=== PATIENT | male | born 1985 | race Caucasian/White ===

== ENCOUNTER 2020-08-04 11:31 | Emergency (ER) | payer BC, OTHER ==
[2020-08-04] MEDS ORDERED: Sodium Chloride 0.9% 1,000 ML IV ONE (12:00)
--- NOTE | 2020-08-04 12:07 | EDM.PDOC ---
ED HPI GENERAL MEDICAL PROBLEM - General Chief Complaint: Respiratory Problem Stated Complaint: LIGHT HEADED NAUSEA Time Seen by Provider: 08/04/20 11:35 Source of Information: Reports: Patient History Limitations: Reports: No Limitations - History of Present Illness INITIAL COMMENTS - FREE TEXT/NARRATIVE: Patient is a 35-year-old male who presents today for symptoms of weakness and fatigue. Patient states that his had the flu a few weeks ago and he also had a sinus infection but did day in the past few days he has been tired with body aches and fevers and chills. Patient denies any shortness of breath cough or abdominal pain. Heartburn Pain Score (Numeric/FACES): 3 - Related Data Allergies Allergy/AdvReac Type Severity Reaction Status Date / Time No Known Allergies Allergy Verified 08/04/20 11:40 Home Meds: Home Meds . [No Known Home Meds] 08/04/20 [History] Past Medical History - Past Health History Medical/Surgical History: Denies Medical/Surgical History - Infectious Disease History Infectious Disease History: Reports: None Social & Family History - Tobacco Use Tobacco Use Status *Q: Never Tobacco User - Caffeine Use Caffeine Use: Reports: Energy Drinks - Recreational Drug Use Recreational Drug Use: No ED ROS GENERAL - Review of Systems Review Of Systems: See Below Constitutional: Reports: No Symptoms, Fever, Chills HEENT: Reports: No Symptoms Respiratory: Reports: No Symptoms Cardiovascular: Reports: No Symptoms Endocrine: Reports: No Symptoms GI/Abdominal: Reports: No Symptoms : Reports: No Symptoms Musculoskeletal: Reports: No Symptoms Skin: Reports: No Symptoms Neurological: Reports: No Symptoms Psychiatric: Reports: No Symptoms Hematologic/Lymphatic: Reports: No Symptoms Immunologic: Reports: No Symptoms ED EXAM, GENERAL - Physical Exam Exam: See Below Exam Limited By: No Limitations General Appearance: Alert, WD/WN, No Apparent Distress Eye Exam: Bilateral Eye: EOMI, PERRL Respiratory/Chest: No Respiratory Distress, Lungs Clear, Normal Breath Sounds Cardiovascular: Normal Peripheral Pulses, Regular Rate, Rhythm, No Edema GI/Abdominal: Normal Bowel Sounds, Soft, Non-Tender Extremities: Normal Inspection Neurological: Alert, Oriented, Normal Cognition, Normal Gait #1 Interpretation EKG Date: 08/04/20 Time: 11:44 Rhythm: NSR Rate (Beats/Min): 66 ST-T: Normal Course - Vital Signs Last Recorded V/S: Last Vital Signs Temp 97.6 F 08/04/20 11:42 Pulse 58 L 08/04/20 12:30 Resp 17 08/04/20 12:30 BP 108/63 08/04/20 12:30 Pulse Ox 96 08/04/20 12:30 - Orders/Labs/Meds Labs: Laboratory Tests 08/04/20 08/04/20 Range/Units 11:45 11:45 WBC 4.96 (4.0-11.0) K/uL RBC 5.14 (4.50-5.90) M/uL Hgb 15.6 (13.0-17.0) g/dL Hct 45.2 (38.0-50.0) % MCV 87.9 (80.0-98.0) fL MCH 30.4 (27.0-32.0) pg MCHC 34.5 (31.0-37.0) g/dL RDW Std Deviation 41.5 (28.0-62.0) fl RDW Coeff of Shayy 13 (11.0-15.0) % Plt Count 243 (150-400) K/uL MPV 10.10 (7.40-12.00) fL Add Manual Diff YES Neutrophils % (Manual) 67 (48.0-80.0) % Band Neutrophils % 4 % Lymphocytes % (Manual) 15 L (16.0-40.0) % Monocytes % (Manual) 13 (0.0-15.0) % Eosinophils % (Manual) 1 (0.0-7.0) % Nucleated RBC % 0.0 /100WBC Absolute Seg Neuts 3.3 (1.4-5.7) Band Neutrophils # 0.2 Lymphocytes # (Manual) 0.7 (0.6-2.4) Monocytes # (Manual) 0.6 (0.0-0.8) Eosinophils # (Manual) 0.0 (0.0-0.7) Nucleated RBCs # 0 K/uL Sodium 138 (136-148) mmol/L Potassium 3.9 (3.5-5.1) mmol/L Chloride 100 (98-107) mmol/L Carbon Dioxide 29.4 (21.0-32.0) mmol/L BUN 16 (7.0-18.0) mg/dL Creatinine 1.4 H (0.8-1.3) mg/dL Est Cr Clr Drug Dosing 79.29 mL/min Estimated GFR (MDRD) 57.0 ml/min Glucose 126 H (74-106) mg/dL Calcium 8.6 (8.5-10.1) mg/dL Magnesium 1.9 (1.8-2.4) mg/dL Total Bilirubin 0.7 (0.2-1.0) mg/dL AST 32 (15-37) IU/L ALT 42 (14-63) IU/L Alkaline Phosphatase 49 (46-116) U/L Creatine Kinase 123 (26-308) U/L Troponin I < 0.050 (0.000-0.056) ng/mL Total Protein 7.3 (6.4-8.2) g/dL Albumin 3.8 (3.4-5.0) g/dL Globulin 3.5 (2.6-4.0) g/dL Albumin/Globulin Ratio 1.1 (0.9-1.6) Lipase 108 (73-393) U/L Meds: Medications Discontinued Medications Generic Name Dose Route Start Last Admin Trade Name Freq PRN Reason Stop Dose Admin Sodium Chloride 1,000 mls @ 999 mls/hr 08/04/20 12:00 08/04/20 12:22 Normal Saline IV 08/04/20 13:00 999 mls/hr .BOLUS ONE Administration - Re-Assessments/Exams Free Text/Narrative Re-Assessment/Exam: 08/04/20 13:09 Lab reviewed patient was also given information about possible viruses going around the area. Patient will be discharged home and told is not better next 3 to 5 days please return to the ED or follow-up primary care physician. Departure - Departure Time of Disposition: 13:10 Disposition: Home, Self-Care 01 Condition: Good Clinical Impression: Viral illness - Discharge Information *PRESCRIPTION DRUG MONITORING PROGRAM REVIEWED*: Not Applicable *COPY OF PRESCRIPTION DRUG MONITORING REPORT IN PATIENT JUANI: Not Applicable Instructions: Viral Illness, Adult Referrals: PCP,None [Primary Care Provider] - Forms: ED Department Discharge Additional Instructions: The following information is given to patients seen in the emergency department who are being discharged to home. This information is to outline your options for follow-up care. We provide all patients seen in our emergency department with a follow-up referral. The need for follow-up, as well as the timing and circumstances, are variable depending upon the specifics of your emergency department visit. If you don't have a primary care physician on staff, we will provide you with a referral. We always advise you to contact your personal physician following an emergency department visit to inform them of the circumstance of the visit and for follow-up with them and/or the need for any referrals to a consulting specialist. The emergency department will also refer you to a specialist when appropriate. This referral assures that you have the opportunity for follow-up care with a specialist. All of these measure are taken in an effort to provide you with optimal care, which includes your follow-up. Under all circumstances we always encourage you to contact your private physician who remains a resource for coordinating your care. When calling for follow-up care, please make the office aware that this follow-up is from your recent emergency room visit. If for any reason you are refused follow-up, please contact the [facility] Department at and asked to speak to the emergency department charge nurse. Please follow up with your primary care physician. If you do not have a primary care physician, see below: [facility] [address] [place] [id number] [facility] [address] [place] [address] You were seen today for body aches fever chills not feeling well. We performed labs x-rays EKG they are within normal limits. You likely have a viral illness we recommend for the next 3 to 5 days stay hydrated and get rest. If symptoms do not improve he can follow-up with us or with your primary care physician. Sepsis Event Note (ED) - Evaluation Sepsis Screening Result: No Definite Risk - Focused Exam Vital Signs: Vital Signs Temp Pulse Resp BP Pulse Ox 08/04/20 12:30 58 L 17 108/63 96 08/04/20 11:42 97.6 F 74 16 118/71 99 - Assessment/Plan Plan: Patient is a 35-year-old male who presents today for flulike symptoms of body aches fever chills. Patient vital signs are normal EKG normal as well. Will obtain basic labs x-ray and reassess.
[2020-08-04 12:33] LABS: BLOOD UREA NITROGEN,BUN 16 mg/dL (7.0-18.0); CARBON DIOXIDE,CO2 29.4 mmol/L (21.0-32.0); CHLORIDE,CL 100 mmol/L (98-107); GLUCOSE RANDOM 126 mg/dL (74-106); LIPASE 108 U/L (73-393); POTASSIUM,K 3.9 mmol/L (3.5-5.1); SODIUM,NA 138 mmol/L (136-148)
--- NOTE | 2020-08-04 12:40 | CR ---
INDICATION: Flu-like symptoms. Weakness. TECHNIQUE: AP portable chest x-ray 2 views. FINDINGS: Lungs are hyperinflated or there has been a deep inspiration. Lungs are clear without infiltrate. Heart size normal. Chest otherwise negative without acute disease. Dictated by Todd Burgess MD @ 08/04/2020 12:39:[address] Todd Burgess @ Aug 04 2020 12:39PM
[2020-08-04 13:26] VITALS: BP 106/62; PULSE 60
== END 2020-08-04 13:26 | disposition home or self-care (01) ==
LOC: MW.ED 11:31
DX: B34.9 Viral infection, unspecified (principal)
CPT/HCPCS: 36415; 71045; 80053; 82550; 83690; 83735; 84484; 85025; 93005; 99284; J7030; 93010; 99283

== ENCOUNTER 2020-09-30 21:37 | Emergency (ER) | payer BC ==
--- NOTE | 2020-09-30 22:09 | EDM.PDOC ---
ED HPI GENERAL MEDICAL PROBLEM - General Chief Complaint: ENT Problem Stated Complaint: RT EAR PLUGGED Time Seen by Provider: 09/30/20 21:42 - History of Present Illness INITIAL COMMENTS - FREE TEXT/NARRATIVE: HISTORY AND PHYSICAL: History of present illness: This a 35-year-old gentleman who presents ER today with decreased hearing out of his right ear after trying to remove wax. Patient reports that he thinks he might of pushed the wax and deeper and started having discomfort and decreased hearing of the right ear. Patient denies any discharge or trauma to the ear other than utilizing a Q-tip. Patient denies any other complaints at this time. Review of systems: As per history of present illness and below otherwise all systems reviewed and negative. Past medical history: As per history of present illness and as reviewed below otherwise noncontributory. Surgical history: As per history of present illness and as reviewed below otherwise noncontributory. Social history: No reported history of drug abuse. Family history: As per history of present illness and as reviewed below otherwise noncontributory. Physical exam: This patient was seen and evaluated during the 2019 SARS-CoV-2 novel coronavirus pandemic period. Community viral transmission is ongoing at time of this encounter and the emergency department is operating under pandemic response procedures. Constitutional: Patient is oriented to person, place, and time. Appears well- developed and well-nourished. No distress. HEENT: Moist mucous membranes Head: Normocephalic and atraumatic Eyes: Right eye exhibits no discharge. Left eye exhibits no discharge. No scleral icterus Neck: Normal range of motion. No tracheal deviation present. Cardiovascular: Normal rate and regular rhythm. Pulmonary: Effort normal, no respiratory distress. Abdominal: No distention Musculoskeletal: Normal range of motion Neurologic: Alert and oriented to person, place and time. Skin: [place], warm and dry. Psychiatric: Normal mood and affect. Behavior is normal. Judgment and thought content normal. Nursing note and vital signs have been reviewed Patient's ER physical exam is significant for cerumen impaction in the right ear. Patient's left TM is normal and intact. After irrigation, patient's right tympanic membrane was evaluated once again. Patient's panic membranes are intact. No fluid or other pathology identified. Diagnostics: [] Therapeutics: [] Assessment and plan: 35-year-old gentleman who presents ER today with cerumen impaction of the right ear with decreased hearing. Right ear was irrigated with saline and a s ignificant amount of dry cerumen was obtained. After irrigation, the patient reports that his hearing has significantly improved and is back to baseline. Reexamination of his ear canal reveals a normal tympanic membrane and a normal exam. Patient be discharged home with instructions to follow-up with PCP as needed. Definitive disposition and diagnosis as appropriate pending reevaluation and r jens of above. - Related Data Allergies Allergy/AdvReac Type Severity Reaction Status Date / Time No Known Allergies Allergy Verified 08/04/20 11:40 Home Meds: Home Meds . [No Known Home Meds] 08/04/20 [History] Past Medical History - Past Health History Medical/Surgical History: Denies Medical/Surgical History - Infectious Disease History Infectious Disease History: Reports: None Social & Family History - Caffeine Use Caffeine Use: Reports: Energy Drinks ED ROS GENERAL - Review of Systems Review Of Systems: See Below ED EXAM, GENERAL - Physical Exam Exam: See Below Departure - Departure Time of Disposition: 22:08 Disposition: Home, Self-Care 01 Condition: Good Clinical Impression: Impacted cerumen of right ear - Discharge Information Instructions: Earwax Buildup, Adult Referrals: PCP,None [Primary Care Provider] - Additional Instructions: You were seen and evaluated in the ER today secondary to impaction of cerumen in your right ear. This was irrigated and removed. Please avoid placing any foreign objects inside your ear like Q-tips. You can utilize medications such as Debrox [id number] or diluted peroxide to help dissolve wax in your ear. The following information is given to patients seen in the emergency department who are being discharged to home. This information is to outline your options for follow-up care. We provide all patients seen in our emergency department with a follow-up referral. The need for follow-up, as well as the timing and circumstances, are variable depending upon the specifics of your emergency department visit. If you don't have a primary care physician on staff, we will provide you with a referral. We always advise you to contact your personal physician following an emergency department visit to inform them of the circumstance of the visit and for follow-up with them and/or the need for any referrals to a consulting specialist. The emergency department will also refer you to a specialist when appropriate. This referral assures that you have the opportunity for follow-up care with a specialist. All of these measure are taken in an effort to provide you with optimal care, which includes your follow-up. Under all circumstances we always encourage you to contact your private physician who remains a resource for coordinating your care. When calling for follow-up care, please make the office aware that this follow-up is from your recent emergency room visit. If for any reason you are refused follow-up, please contact the [facility] Emergency Department at and asked to speak to the emergency department charge nurse. [facility] [address] [place] [id number] [facility] [address] [place] [id number]
[2020-09-30 22:11] VITALS: BP 148/70; PULSE 88
== END 2020-09-30 22:16 | disposition home or self-care (01) ==
LOC: MW.ED 21:37
DX: H61.21 Impacted cerumen, right ear (principal)
CPT/HCPCS: 69209; 99282-25

== ENCOUNTER 2024-06-19 11:42 | Emergency (ER) | payer BC, OTHER ==
[2024-06-19 12:23] VITALS: PULSE 68
[2024-06-19] MEDS: Diphtheria,Pertussis(Acell),Tetanus Vaccine 0.5 ML Syringe IM ONE (14:08)
[2024-06-19 19:40] VITALS: BP 147/85
== END 2024-06-19 15:32 | disposition home or self-care (01) ==
LOC: MW.ED 11:42
DX: S71.152A Open bite, left thigh, initial encounter (principal); Z79.899 Other long term (current) drug therapy; Z23 Encounter for immunization; W54.0XXA Bitten by dog, initial encounter; Y93.89 Activity, other specified
CPT/HCPCS: 90471; 99282; 99283-25